=== PATIENT | female | born 1960 | race Caucasian/White ===

== ENCOUNTER 2021-10-29 09:46 | Outpatient (CLI) | payer BC | END 2021-10-29 09:47 | disposition home or self-care (01) | LOC: CSHMAMMO 09:46 | PROVIDERS: ATTEND Obstetrics & Gynecology | DX: N63.11 Unspecified lump in the right breast, upper outer quadrant (principal) | CPT/HCPCS: 19083; 19084; 77066; G0279 ==

== ENCOUNTER 2021-12-12 12:00 | Outpatient (CLI) | payer BC | END 2021-12-12 12:01 | disposition home or self-care (01) | LOC: CSHLAB 12:00 | PROVIDERS: ATTEND Surgery | DX: Z20.822 Contact with and (suspected) exposure to COVID-19 (principal) | CPT/HCPCS: 87811 ==

== ENCOUNTER 2021-12-16 05:57 | Day surgery (SDC) | payer BC ==
[2021-12-12 14:52] VITALS: BMI 36.8
[2021-12-16] MEDS ORDERED: Bupivacaine 0.25% HCL 30 ML VIAL ONE (06:20)
[2021-12-16] MEDS ORDERED: EPINEPHrine 1 MG/ML AMP ONE (06:21)
[2021-12-16] MEDS ORDERED: Lidocaine 1% MPF 2 ML VIAL ONE (06:27)
[2021-12-16] MEDS ORDERED: Lidocaine 1% PF 5 ML VIAL ONE (06:31)
[2021-12-16] MEDS ORDERED: Ondansetron PF 4 MG/2 ML Vial ONE (06:31)
[2021-12-16] MEDS ORDERED: PROPOFOL 20 ML ONE ×2 (06:31→07:13)
[2021-12-16] MEDS ORDERED: CEFAZOLIN 2 GM VIAL ONE (06:51)
[2021-12-16] MEDS ORDERED: Fentanyl 100 MCG/2 ML VIAL ONE (06:55)
[2021-12-16] MEDS ORDERED: diphenhydrAMINE 50 MG/ML VIAL ONE (07:13)
[2021-12-16] MEDS ORDERED: Dexamethasone 4 mg/ml Vial ONE (07:14)
[2021-12-16] MEDS ORDERED: HYDROcodone/Acetaminophen 5/325 mg Tablet PO PRN (08:23)
[2021-12-16] MEDS ORDERED: Acetaminophen 325 MG TAB PO PRN (08:23)
== END 2021-12-16 08:40 | disposition home or self-care (01) ==
LOC: CSHSDC 05:57
PROVIDERS: ATTEND Surgery
PROC: B518ZZA Fluoroscopy of Superior Vena Cava, Guidance (ICD-10-PCS; principal; 2021-12-16)
PROC: 02HV33Z Insertion of Infusion Device into Superior Vena Cava, Percutaneous Approach (ICD-10-PCS; principal; 2021-12-16)
DX: C50.411 Malignant neoplasm of upper-outer quadrant of right female breast (principal); I10 Essential (primary) hypertension; J30.9 Allergic rhinitis, unspecified; F32.A Depression, unspecified; Z79.899 Other long term (current) drug therapy; Z20.822 Contact with and (suspected) exposure to COVID-19; Z98.890 Other specified postprocedural states
CPT/HCPCS: C1788; J0171; J0690; J1100; J1200; J1642; J2405; J2704; J3010; S0020

== ENCOUNTER 2022-05-18 09:40 | Outpatient (CLI) | payer BC ==
[~2022-05-18 09:40] MED LIST: Iopamidol 300 61% 100 ML VIAL FS ONE
== END 2022-05-18 09:41 | disposition home or self-care (01) ==
LOC: CSHCT 09:40
PROVIDERS: ATTEND Internal Medicine Hematology & Oncology
DX: C50.811 Malignant neoplasm of overlapping sites of right female breast (principal)
CPT/HCPCS: 71260; 74177

== ENCOUNTER 2022-05-22 06:55 | Day surgery (SDC) | payer BC ==
[2022-05-20 14:22] VITALS: BMI 35.2
[2022-05-22] MEDS ORDERED: Fentanyl 100 MCG/2 ML VIAL ONE (11:29)
[2022-05-22] MEDS ORDERED: Lidocaine 1% PF 5 ML VIAL ONE (11:31)
[2022-05-22] MEDS ORDERED: Midazolam HCl 2 mg/2 ml Vial ONE (11:33)
[2022-05-22] MEDS ORDERED: EPINEPHrine 1 MG/ML AMP ONE (11:33)
[2022-05-22] MEDS ORDERED: Bupivacaine PF 0.5% 30 ML VIAL ONE (11:33)
[2022-05-22] MEDS ORDERED: Isosulfan Blue 50 MG/5 ML VIAL ONE (11:33)
[2022-05-22] MEDS ORDERED: CEFAZOLIN 2 GM VIAL ONE (11:37)
[2022-05-22] MEDS ORDERED: Dexamethasone 20 MG/5 ML VIAL ONE (11:43)
[2022-05-22] MEDS ORDERED: Ondansetron PF 4 MG/2 ML Vial ONE (11:43)
[2022-05-22] MEDS ORDERED: Ketorolac Tromethamine 30 MG/ML VIAL ONE (14:19)
== END 2022-05-22 16:35 | disposition home or self-care (01) ==
LOC: CSHNM 06:55
PROVIDERS: ATTEND Surgery
PROC: 0HBT0ZZ Excision of Right Breast, Open Approach (ICD-10-PCS; principal; 2022-05-22)
PROC: C71LYZZ Planar Nuclear Medicine Imaging of Upper Chest Lymphatics using Other Radionuclide (ICD-10-PCS; principal; 2022-05-22)
PROC: 07B50ZZ Excision of Right Axillary Lymphatic, Open Approach (ICD-10-PCS; principal; 2022-05-22)
DX: C50.411 Malignant neoplasm of upper-outer quadrant of right female breast (principal); C77.3 Secondary and unspecified malignant neoplasm of axilla and upper limb lymph nodes; Z17.0 Estrogen receptor positive status [ER+]; I10 Essential (primary) hypertension; Z87.891 Personal history of nicotine dependence; E66.9 Obesity, unspecified; Z68.37 Body mass index [BMI] 37.0-37.9, adult; Z79.899 Other long term (current) drug therapy; Z79.82 Long term (current) use of aspirin
CPT/HCPCS: 19281; 76098; 78195; 88307; 88331; 88342; A9541; C1713; J0171; J1100; J1885; J2250; J2405; J3010; Q9968; S0020

== ENCOUNTER → 2022-05-22 | Day surgery (SDC) | payer BC ==
[~2022-05-22] MED LIST changes: +Acetaminophen 325 MG TAB PO PRN; +HYDROcodone/Acetaminophen 5/325 mg Tablet PO PRN; -Iopamidol 300 61% 100 ML VIAL FS ONE
== END | disposition home or self-care (01) ==
LOC: CSHMAMMO 07:01
PROVIDERS: ATTEND Surgery
PROC: 0HBT0ZZ Excision of Right Breast, Open Approach (ICD-10-PCS; principal; 2022-05-22)
PROC: 07B50ZZ Excision of Right Axillary Lymphatic, Open Approach (ICD-10-PCS; principal; 2022-05-22)
DX: C50.411 Malignant neoplasm of upper-outer quadrant of right female breast (principal); Z17.0 Estrogen receptor positive status [ER+]; I10 Essential (primary) hypertension; F32.A Depression, unspecified; Z87.891 Personal history of nicotine dependence; E66.9 Obesity, unspecified; Z68.37 Body mass index [BMI] 37.0-37.9, adult; Z79.82 Long term (current) use of aspirin; Z79.899 Other long term (current) drug therapy
CPT/HCPCS: 19281; 76098; 78195; A9541

== ENCOUNTER 2022-06-04 08:02 | Day surgery (SDC) | payer BC ==
[2022-06-03 09:37] VITALS: BMI 35.2
[2022-06-04] MEDS ORDERED: Bupivacaine PF 0.5% 30 ML VIAL ONE (09:15)
[2022-06-04] MEDS ORDERED: CEFAZOLIN 2 GM VIAL ONE (09:38)
[2022-06-04] MEDS ORDERED: Midazolam HCl 2 mg/2 ml Vial ONE (09:42)
[2022-06-04] MEDS ORDERED: PROPOFOL 20 ML ONE (09:59)
[2022-06-04] MEDS ORDERED: Fentanyl 100 MCG/2 ML VIAL ONE (09:59)
[2022-06-04] MEDS ORDERED: Lidocaine 1% PF 5 ML VIAL ONE (09:59)
[2022-06-04] MEDS ORDERED: EPINEPHrine 1 MG/ML AMP ONE (10:00)
[2022-06-04] MEDS ORDERED: Dexamethasone 20 MG/5 ML VIAL ONE (10:11)
[2022-06-04] MEDS ORDERED: PHENYLEPHRINE-NS 100 MCG/ML 10 ML SYRINGE ONE (10:13)
[2022-06-04] MEDS ORDERED: ePHEDrine Sulfate 50 MG/10 ML VIAL ONE (10:36)
[2022-06-04] MEDS ORDERED: HYDROcodone/Acetaminophen 5/325 mg Tablet PO PRN ×2 (11:42)
[2022-06-04] MEDS ORDERED: Acetaminophen 325 MG TAB PO PRN (11:42)
== END 2022-06-04 12:34 | disposition home or self-care (01) ==
LOC: CSHSDC 08:02
PROVIDERS: ATTEND Surgery
PROC: 0HBT0ZZ Excision of Right Breast, Open Approach (ICD-10-PCS; principal; 2022-06-04)
DX: C50.411 Malignant neoplasm of upper-outer quadrant of right female breast (principal); I10 Essential (primary) hypertension; F32.A Depression, unspecified; E66.9 Obesity, unspecified; Z68.35 Body mass index [BMI] 35.0-35.9, adult; Z79.82 Long term (current) use of aspirin; Z79.899 Other long term (current) drug therapy
CPT/HCPCS: 88307; C1713; J0171; J1100; J2250; J2704; J3010; S0020

== ENCOUNTER 2023-02-15 12:43 | Outpatient (CLI) | payer BC | END 2023-02-15 12:44 | disposition home or self-care (01) | LOC: CSHMAMMO 12:43 | PROVIDERS: ATTEND Internal Medicine Hematology & Oncology | DX: C50.811 Malignant neoplasm of overlapping sites of right female breast (principal) | CPT/HCPCS: 77066; G0279 ==

== ENCOUNTER 2023-04-04 12:12 | Emergency (ER) | payer BC ==
[2023-04-04 13:32] LABS: #Basophils 0.1 10x3/uL (0.0-0.2); #Eosinphils 0.2 10x3/uL (0.0-0.5); #Monocytes 0.4 10x3/uL (0.0-1.1); #Neutrophils 1.9 10x3/uL (1.5-8.4); %Basophils 2.4 % (0.0-2.0); %Eosinophils 5.1 % (0.0-6.0); %Lymphocytes 24.6 % (18.0-47.0); %Monocytes 11.4 % (0.0-10.0); %Neutrophils 55.9 % (40.0-75.0); Hematocrit 33.3 % (34.9-44.5); Mean Platelet Volume 8.8 fl (7.4-10.4); Platelet Count 165 10x3/uL (150-450); Red Blood Cell (RBC) Count 3.33 10x6/uL (3.90-5.03); White Blood Cell (WBC) Count 3.3 10x3/uL (3.5-10.5)
[2023-04-04 13:43] LABS: ALT (SGPT) 21 U/L (8-55); AST (SGOT) 22 U/L (5-34); Albumin 4.1 g/dL (3.4-4.8); Alkaline Phosphatase 67 U/L (40-110); Anion Gap 15 mmol/L (10-20); BUN (Urea Nitrogen) 15 mg/dL (9.8-20.1); Bilirubin, Total 0.6 mg/dL (0.2-1.2); Calc. Creatinine Clearance 0 mL/min (70-130); Calcium 9.9 mg/dL (7.8-10.44); Carbon Dioxide 26 mmol/L (23-31); Chloride 106 mmol/L (98-107); Estimated GFR 69; Globulin 2.7 g/dL (2.4-3.5); Glucose 100 mg/dL (80-115); Protein, Total 6.8 g/dL (5.8-8.1); Sodium 143 mmol/L (136-145)
[2023-04-04 13:49] LABS: Troponin I 0.014 ng/mL (< 0.028)
== END 2023-04-04 14:58 | disposition home or self-care (01) ==
LOC: CSHERS 12:12
DX: I10 Essential (primary) hypertension (principal); Z79.899 Other long term (current) drug therapy; Z79.82 Long term (current) use of aspirin
CPT/HCPCS: 36415; 80053; 84484; 85025; 93005

== ENCOUNTER 2023-04-14 08:05 | Outpatient (CLI) | payer BC ==
[2023-04-14] MEDS ORDERED: Iopamidol 300 61% 100 ML VIAL FS ONE (09:49)
== END 2023-04-14 08:06 | disposition home or self-care (01) ==
LOC: CSHCT 08:05
PROVIDERS: ATTEND Internal Medicine Hematology & Oncology
DX: C50.811 Malignant neoplasm of overlapping sites of right female breast (principal); K31.9 Disease of stomach and duodenum, unspecified
CPT/HCPCS: 71260; 74177

== ENCOUNTER 2024-02-22 12:36 | Outpatient (CLI) | payer BC | END 2024-02-22 12:37 | disposition home or self-care (01) | LOC: CSHMAMMO 12:36 | PROVIDERS: ATTEND Surgery | DX: Z08 Encounter for follow-up examination after completed treatment for malignant neoplasm (principal); Z85.3 Personal history of malignant neoplasm of breast | CPT/HCPCS: 77066; G0279 ==

== ENCOUNTER 2024-06-05 08:25 | Outpatient (CLI) | payer BC ==
[2024-06-05] MEDS ORDERED: Iopamidol 300 61% 100 ML VIAL FS ONE (09:51)
== END 2024-06-05 08:26 | disposition home or self-care (01) ==
LOC: CSHCT 08:25
PROVIDERS: ATTEND Internal Medicine Hematology & Oncology
DX: C50.811 Malignant neoplasm of overlapping sites of right female breast (principal); T38.6X5A Adverse effect of antigonadotrophins, antiestrogens, antiandrogens, not elsewhere classified, initial encounter; R19.09 Other intra-abdominal and pelvic swelling, mass and lump
CPT/HCPCS: 71260

== ENCOUNTER 2025-02-22 09:54 | Outpatient (CLI) | payer BC | END 2025-02-22 09:55 | disposition home or self-care (01) | LOC: CSHMAMMO 09:54 | PROVIDERS: ATTEND Surgery | DX: Z08 Encounter for follow-up examination after completed treatment for malignant neoplasm (principal); Z85.3 Personal history of malignant neoplasm of breast | CPT/HCPCS: 77066; G0279 ==